=== PATIENT | male | born 1985 | race Caucasian/White ===

== ENCOUNTER 2020-04-07 22:26 | Emergency (ER) | payer OTHER ==
[~2020-04-07] VITALS: Wt 61.2 kg
[2020-04-07] MEDS ORDERED: Tobrex Ophth S2.5 ML OPH (23:15)
[2020-04-07] MEDS ORDERED: IBUPROFEN600 MG PO (23:15)
== END 2020-04-07 23:36 | disposition home or self-care (01) ==
LOC: ED 22:26
DX: T15.01XA Foreign body in cornea, right eye, initial encounter (principal); X58.XXXA Exposure to other specified factors, initial encounter; Y93.89 Activity, other specified; Y92.89 Other specified places as the place of occurrence of the external cause; Y99.8 Other external cause status